=== PATIENT | male | born 1935 | race Caucasian/White ===

== ENCOUNTER 2023-04-23 13:34 | Outpatient (CLI) | payer OTHER | END 2023-04-23 13:35 | disposition home or self-care (01) | LOC: RAD 13:34 | PROVIDERS: ATTEND Internal Medicine Critical Care Medicine | DX: R06.00 Dyspnea, unspecified (principal) | CPT/HCPCS: 71046 ==

== ENCOUNTER 2023-08-05 11:00 | Outpatient (CLI) | payer OTHER | END 2023-08-05 11:01 | disposition home or self-care (01) | LOC: PET 11:00 | PROVIDERS: ATTEND Internal Medicine Hematology & Oncology | DX: C86.6 Primary cutaneous CD30-positive T-cell proliferations (principal) | CPT/HCPCS: 78816; A9552 ==